=== PATIENT | female | born 1955 | race Caucasian/White ===

== ENCOUNTER 2020-04-03 18:08 | Emergency (ER) | payer OTHER ==
--- OUTSIDE RECORDS SUMMARY | 2020-04-03 18:18 | XMS ---
:1955 [facility] Providers Name Role Phone ALFA HERRERA Unavailable Unavailable Re-disclosure Warning The records that you are about to access may contain information from federally- assisted alcohol or drug abuse programs. If such information is present, then the following federally mandated warning applies: This information has been disclosed to you from records protected by federal confidentiality rules (42 CFR part 2). The federal rules prohibit you from making any further disclosure of this information unless further disclosure is expressly permitted by the written consent of the person to whom it pertains or as otherwise permitted by 42 CFR part 2. A general authorization for the release of medical or other information is NOT sufficient for this purpose. The Federal rules restrict any use of the information to criminally investigate or prosecute any alcohol or drug abuse patient.The records that you are about to access may contain highly sensitive health information, the redisclosure of which is protected by Article 27-F of the [facility] Public Health law. If you continue you may haveaccess to information: Regarding HIV / AIDS; Provided by facilities licensed or operated by the [facility] Office of Mental Health; or Provided by the [facility] Office for People With Developmental Disabilities. If such information is present, then the following [facility] mandated warning applies: This information has been disclosed to you from confidential records which are protected by state law. State law prohibits you from making any further disclosure of this information without the specific written consent of the person to whom it pertains, or as otherwise permitted by law. Any unauthorized further disclosure in violation of state law may result in a fine or prison sentence or both. A general authorization for the release of medical or other information is NOT sufficient authorization for further disclosure. Encounters Encounter Providers Location Date Indications Data Source(s ) Outpatient Attender: SHARON 10/15/2019 Z03.818 [facility] RAGINIdmitter: 02:20:00 PM Health C are ALFA HERRERA C$ cMoney Z03.818 Insurance Providers Payer name Policy type Policy ID Covered Covered constitution party's Policy P bill / Coverage constitution party ID relationship to [place] Inf ormation type perea [employer] HMO [id number] SP [id number] Problems, Conditions, and Diagnoses Code Display Name Description Problem Type Effective Data Sour ce(s) Dates Z03.818 Encounter for ENCNTR FOR OBS Diagnosis 10/15/2019 [facility] ster observation for FOR SUSP EXPSR 02:20:00 PM Coun ty Health suspected TO OT BIOLG EDT [employer] tion exposure to other AGENTS RULED OUT biological agents ruled out V70.0 ROUTINE GENERAL WELL PATIENT Diagnosis 08/31/2018 RONAK Blandon ([facility] MEDICAL VISIT 10:01:26 AM [facility] EXAM[facility] AT [facility] ) FACILITY Results ID Date Data Source [id number] 10/15/2019 12:00:00 AM EDT [facility] Name Value Range Interpretation Code Description Data Crystal rce(s) Supporting Document(s ) 2019-nCoV [facility] RNA XXX BRAIN+probe- Imp This lab was ordered by [facility] and reported by [employer] [facility] [employer] Procedure
--- NOTE | 2020-04-03 18:23 | TELE ---
HPI Do you have fever,cough or shortness of breath?: No - General Reason For Visit: COVID TEST History Source: Patient Review of Systems - Review of Systems Constitutional: No: Fever *Physical Exam - Physical Exam Respiratory/Chest: negative: Respiratory Distress Discharge Diagnosis at time of Disposition: Encounter for laboratory testing for COVID-19 virus - Referrals Follow-up Referral(s): Cat Almendarez [Primary Care Provider] - - Patient Instructions - Discharge Disposition: HOME Condition at time of Disposition: Stable
== END 2020-04-03 18:23 | disposition home or self-care (01) ==
LOC: JVIRT 18:08
DX: Z11.59 Encounter for screening for other viral diseases (principal)
CPT/HCPCS: C9803; Q3014-GT; U0003